=== PATIENT | female | born 1990 | race Caucasian/White ===

== ENCOUNTER 2024-10-13 07:25 | Day surgery (SDC) | payer OTHER, SELFPAY ==
--- NOTE | 2024-10-10 11:41 | EKG_ITS ---
[facility] Test Date: 2024-10-10 Pat Name: MAURICIO HUITRON Department: Room: - Gender: Female Locator: ARELIS : 1990 Requested By: Nano Swanson Order Number: [id number] Reading MD: Nano Swanson Measurements Intervals [place] Rate: 79 P: 58 VA: 182 QRS: 21 QRSD: 97 T: 42 QT: 406 QTc: 468 Interpretive Statements SINUS RHYTHM No previous ECG available for comparison /[id number]/S0/[id number].pdf
[2024-10-10 11:57] LABS: HCG,Qualitative Serum Negative
[2024-10-10 12:03] LABS: INR 1.1 (0.9-1.3); Partial Thromboplastin Time 27.3 Seconds (22.0-36.0); Prothrombin Time 11.6 Seconds (9.0-12.2)
[2024-10-10 12:04] LABS: Alanine Aminotransferase 60 U/L (10-49); Albumin, Serum 4.6 gm/dL (3.5-5.0); Albumin/Globulin Ratio 1.8 (1.2-2.2); Alkaline Phosphatase 92 U/L (46-116); Anion Gap 10 (7-16); Aspartate Amino Transferase 41 U/L (0-34); BUN/Creatinine Ratio 12 Ratio (12-20); Bilirubin,Total 0.6 mg/dL (0.3-1.2); Blood Urea Nitrogen 7 mg/dL (9-23); Calcium 9.8 mg/dL (8.3-10.6); Calcium (Corrected) 9.8 mg/dL (8.5-10.1); Chloride 103 mMol/L (98-107); Creatinine (Component) 0.6 mg/dL (0.6-1.3); Globulin 2.6 gm/dL (2.3-3.5); Glucose 112 mg/dL (74-106); Osmolality,Calculated 280 (275-295); Potassium 4.2 mMol/L (3.4-5.1); Sodium 141 mMol/L (136-145); Total Protein 7.2 gm/dL (5.7-8.2); eGFR > 60 See Note
[2024-10-13] VITALS (7 sets, daily range): BP systolic 132–188; BP diastolic 93–120; PULSE 77–102; RESP 16–24; TEMP 36.4–37.2; O2SAT 95–99; BMI 55.4
--- NOTE | 2024-10-13 08:01 | SUR.PREOP ---
INFORMED THAT PATIENT'S BMI IS 55.4. INFORMS THIS NURSE IT IS OKAY TO PROCEED WITH PROCEDURE HERE AT [facility].
--- NOTE | 2024-10-13 08:49 | SUR.PREOP ---
INFORMED OF ELEVATED BLOOD PRESSURE 169/116. NO NEW ORDERS RECEIVED.
[2024-10-13] MEDS: RINGERS LACTATED 1000 ML 1,000 ML 20 ML IV (09:10)
--- NOTE | 2024-10-13 11:19 | SUR.PHASEII ---
0942 Pt arrived into PACU. Pt awake, extremely anxious and crying. Reoriented to place and time, emotional support and reassurance offered. B/P 166/120 and tachy at 102. Dr Hector at bedside. Aware of VSS and pt condition. No new orders rec'd. 1000 Continue to talk and offer reassurance with pt. Pt denies pain or N/V. Abd remains soft. Pt adeline PO fluids. 1010 Pt calms when distracted and spoken to. B/P and HR lowering. Pt c/o gas pain with some dry retching. Pt repositioned for comfort and flatus release. New orders rec'd for Zofran 4mgIVP.
== END 2024-10-13 10:42 | disposition home or self-care (01) ==
PROVIDERS: PCP Family Medicine; Referring Provider Specialist; Visit Provider Specialist
PROC: 0DBE8ZX Excision of Large Intestine, Via Natural or Artificial Opening Endoscopic, Diagnostic (ICD-10-PCS; CPT 45380; principal; 2024-10-13 08:30)
PROC: (CPT 43239; 2024-10-13 08:30)
DX: K62.1 Rectal polyp (principal); Z01.810 Encounter for preprocedural cardiovascular examination; Z80.0 Family history of malignant neoplasm of digestive organs; K64.9 Unspecified hemorrhoids; K31.89 Other diseases of stomach and duodenum
CPT/HCPCS: 45380; 36415; 80053; 81025; 84703; 85610; 85730; 93005; A4649; J7120